=== PATIENT | male | born 1990 | race Hispanic/Latino ===

== ENCOUNTER → 2018-01-19 | Outpatient (CLI) | payer SELFPAY | END | disposition home or self-care (01) | LOC: RAH 08:35 | PROVIDERS: ATTEND Internal Medicine Cardiovascular Disease | DX: K76.0 Fatty (change of) liver, not elsewhere classified (principal); I25.10 Atherosclerotic heart disease of native coronary artery without angina pectoris | CPT/HCPCS: 76705 ==

== ENCOUNTER 2021-08-19 01:38 | Inpatient (IN) | payer OTHER, SELFPAY ==
[~2021-08-19] VITALS: Ht 185.4 cm; Wt 131.5 kg
[2021-08-19] MEDS ORDERED: METOPROLOL TARTRATE 1 MG/ML 5ML VIAL IV ONE ×3 (01:47→02:00)
[2021-08-19] MEDS ORDERED: LISI10TA24 PO (01:54)
[2021-08-19] MEDS ORDERED: LORA2ORA5 PO (01:56)
[2021-08-19] MEDS ORDERED: SODIUM BICARB 50MEQ 50ML VIAL 50 ML ONE (01:59)
[2021-08-19] MEDS ORDERED: BIVALIRUDIN 250 MG/VIAL IV ONE (01:59)
[2021-08-19] MEDS ORDERED: NICARDIPINE 25MG INJ IV ONE (01:59)
[2021-08-19] MEDS ORDERED: LIDOCAINE HCL 400MG/20ML VIAL ONE (02:00)
[2021-08-19] MEDS ORDERED: ONDANSETRON 4MG INJ IVP PRN (02:00)
[2021-08-19] MEDS ORDERED: HEPARIN 10,000 UNIT/10ML (1,000 UNIT/ML) VIAL ONE (02:00)
[2021-08-19] MEDS ORDERED: FENTANYL CITRATE PF 50 MCG/1 ML 2ML VIAL ONE (02:00)
[2021-08-19] MEDS ORDERED: MIDAZOLAM HCL 1 MG/ML 2ML VIAL ONE (02:00)
[2021-08-19] MEDS ORDERED: MORPHINE 2 MG SYG IVP PRN (02:00)
[2021-08-19] MEDS ORDERED: NITROGLYCERIN 50MG VIAL ONE (02:00)
[2021-08-19] MEDS ORDERED: IOHEXOL-350 50ML VIAL IV ONE (02:00)
[2021-08-19] MEDS ORDERED: IOHEXOL-350 75 ML VIAL IV ONE (02:00)
[2021-08-19 02:01] LABS: ABG BASE EXCESS -10.8 mmol/L (-2.0-3.0); ABG HCO3 9.9 mmol/L (21.0-28.0); ABG OXYGEN SATURATION 98.4 % (95.0-99.0); ABG PCO2 15 mmHg (35-48)
[2021-08-19] MEDS ORDERED: ASPI-1197 PO (02:02)
[2021-08-19] MEDS ORDERED: [UNRECOGNIZED DRUG - OTHER] (02:04)
[2021-08-19] MEDS ORDERED: VERAPAMIL HCL 2.5 MG/ML VIAL ONE (02:05)
[2021-08-19] MEDS ORDERED: EPINEPHRINE PF 1MG AMP ONE (02:17)
[2021-08-19 02:34] LABS: CREATININE 1.8 mg/dL (0.5-1.5); POTASSIUM 3.8 mmol/L (3.5-5.1)
[2021-08-19] MEDS ORDERED: EPINEPHRINE 1MG SYG 10ML ONE (02:39)
[2021-08-19] MEDS ORDERED: EPINEPHRINE 1 MG/ML 30ML VIAL IJ ONE ×2 (02:40→02:56)
[2021-08-19 02:57] LABS: ALBUMIN 3.4 g/dL (3.5-5.0); BILIRUBIN,TOTAL 0.8 mg/dL (0.2-1.0); TOTAL PROTEIN, SERUM 7.4 g/dL (6.0-8.3)
[2021-08-19] MEDS ORDERED: DEXTROSE 50%-WATER 50 ML DISP.SYRIN IV ONE (03:00)
[2021-08-19] MEDS ORDERED: EPINEPHRINE 1MG SYG 10ML IVP ONE ×2 (03:00)
[2021-08-19 03:01] VITALS: BP 0/0
== END 2021-08-19 03:01 ==
LOC: EDH 01:38 → EDHIP 01:39
PROVIDERS: ADMIT Internal Medicine; ATTEND Internal Medicine
PROC: 0BH17EZ Insertion of Endotracheal Airway into Trachea, Via Natural or Artificial Opening (ICD-10-PCS; principal; 2021-08-19)
PROC: 5A12012 Performance of Cardiac Output, Single, Manual (ICD-10-PCS; 2021-08-19)
DX: I21.3 ST elevation (STEMI) myocardial infarction of unspecified site (principal); I46.9 Cardiac arrest, cause unspecified; I25.10 Atherosclerotic heart disease of native coronary artery without angina pectoris; E78.5 Hyperlipidemia, unspecified; Z86.711 Personal history of pulmonary embolism; E66.9 Obesity, unspecified; Z68.38 Body mass index [BMI] 38.0-38.9, adult; Z86.718 Personal history of other venous thrombosis and embolism
CPT/HCPCS: 31500; 36415; 36600; 80053; 82435; 82550; 82803; 82947; 83605; 84132; 84295; 84484; 85018; 92950; 93005; 94002; 99291; G0378; J0171; J0583; J1644; J2250; J3010; J3490; J7070; Q9967